=== PATIENT | male | born 1965 | race Caucasian/White ===

== ENCOUNTER → 2022-09-20 19:31 | Outpatient (CLI) | payer MEDICARE, OTHER, SELFPAY | PROVIDERS: PCP Emergency Medicine; Visit Provider Emergency Medicine | DX: L02.414 Cutaneous abscess of left upper limb (principal); B95.7 Other staphylococcus as the cause of diseases classified elsewhere | CPT/HCPCS: 87070; 87077; 87186; 87205 ==

== ENCOUNTER 2023-10-21 08:53 | Observation (INO) | payer MEDICARE, OTHER, SELFPAY ==
[2023-10-21] VITALS (12 sets, daily range): BP systolic 110–140; BP diastolic 74–87; PULSE 64–92; RESP 16–18; TEMP 36.7; O2SAT 94–98; BMI 23.1
--- NOTE | 2023-10-21 08:55 | HMH.EDGENADL ---
Discharge Plan Disposition Patient Disposition: Admitted Clinical Impressions Clinical Impression: Leg fracture, left Discharge ED Provider: Rocael Gongora Adult [facility] General Chief complaint: Extremity Injury, Lower Stated complaint: fall on 10/19/23 Time Seen by Provider: 10/21/23 08:55 History of Present Illness HPI narrative: Patient presents from assisted living facility with reported fall and ankle injury sustained 3 days ago. History is extremely limited secondary to what appears to be history of intellectual disability. He reports no specific injury or event that led to the onset of the problem. The patient is unsure of when the issue first began but has been able to walk on the affected ankle. He reports pain in the ankle, but no pain elsewhere. Please note that above description of symptoms, in this electronic medical record under categorization of recalled from ER triage doctor by RN are reflective of an initial nursing assessment, however, is not reflective of my full history and physical exam that was personally taken and clarified. Consequentially, this preceding description of symptoms, which may include the patient's categorized chief complaint in the EMR, do not reflect my personal clinical impression, and the ultimate description of history of present illness and patient stated complaints should be deferred to this section of the note. Unless stated otherwise or congruent with this section of the note, additional signs, symptoms, or incongruence should be interpreted as inaccurate with my clinical impression. Related Data Home Medications ?Medication ?Instructions ?Recorded ?Confirmed cholecalciferol (vitamin D3) 1,250 1,250 mcg PO DAILY 10/21/23 10/21/23 mcg (50,000 unit) capsule cyanocobalamin (vitamin B-12) 1,000 mcg PO DAILY 10/21/23 10/21/23 1,000 mcg tablet hydroxyzine pamoate 50 mg capsule 50 mg PO Q6 Anxiety 10/21/23 10/21/23 sertraline 50 mg tablet 75 mg PO DAILY 10/21/23 10/21/23 Allergies Allergy/AdvReac Type Severity Reaction Status Date / Time No Known Allergies Allergy Verified 10/21/23 08:58 [facility] Disclaimer: The information contained in this section may have been updated after the patient was seen, as this information can be updated by other users. Social History Smoking Status: Current every day smoker alcohol intake: never current occupational status: other Travel in the last 8 weeks: None ROS Obtained: Yes other As per HPI Physical Exam General General appearance: alert and in no apparent distress Head Head exam: atraumatic and normocephalic Eye Eye exam: Present normal appearance Neck Neck exam: Present normal inspection Chest Chest inspection: Present normal inspection and symmetric chest wall rise Respiratory Respiratory exam: Present normal lung sounds bilaterally; Absent respiratory distress Cardiovascular Cardiovascular exam: Present regular rate and normal rhythm Abdominal Exam Abdominal exam: Present soft Neurological Exam Neurological exam: Present alert Psychiatric Psychiatric exam: Present normal affect and normal mood Skin Skin exam: Present warm and dry Other Other exam information: Left ankle with ecchymosis, swelling, distally neurovascularly intact, no focal tenderness to palpation. No knee tenderness. No appreciable injury elsewhere. Medical Decision Making Medical Records Medical records reviewed: Yes I reviewed the patient's medical records. Ruben Inquiry Pt receiving controlled substance: No Vital Signs: 10/21/23 08:53 10/21/23 08:54 10/21/23 09:00 Temperature 98.0 F Temperature Source Oral Pulse Rate 92 H 78 Pulse Rate [Radial] 86 Respiratory Rate 16 Blood Pressure 125/80 118/77 Blood Pressure [Right Arm] 125/80 Blood Pressure Mean Blood Pressure Mean [Right Arm] 95 Blood Pressure Source Blood Pressure Source [Right Arm] Automatic Cuff Blood Pressure Position Blood Pressure Position [Right Arm] Sitting 02 Sat by Pulse Oximetry 96 94 L 98 Oxygen Delivery Method Room Air Room Air Room Air 10/21/23 09:30 10/21/23 10:00 10/21/23 10:30 Temperature Temperature Source Pulse Rate 77 64 64 Pulse Rate [Radial] Respiratory Rate Blood Pressure 120/87 111/74 120/74 Blood Pressure [Right Arm] Blood Pressure Mean 83 Blood Pressure Mean [Right Arm] Blood Pressure Source Blood Pressure Source [Right Arm] Blood Pressure Position Blood Pressure Position [Right Arm] 02 Sat by Pulse Oximetry 95 96 94 L Oxygen Delivery Method Room Air Room Air Room Air 10/21/23 11:00 10/21/23 11:30 10/21/23 12:00 Temperature Temperature Source Pulse Rate 77 70 69 Pulse Rate [Radial] Respiratory Rate 16 Blood Pressure 119/80 118/75 110/74 Blood Pressure [Right Arm] Blood Pressure Mean Blood Pressure Mean [Right Arm] Blood Pressure Source Blood Pressure Source [Right Arm] Blood Pressure Position Blood Pressure Position [Right Arm] 02 Sat by Pulse Oximetry 95 95 96 Oxygen Delivery Method Room Air Room Air Room Air 10/21/23 12:30 10/21/23 14:01 Temperature 98.0 F Temperature Source Oral Pulse Rate 71 71 Pulse Rate [Radial] Respiratory Rate 16 Blood Pressure 120/77 120/77 Blood Pressure [Right Arm] Blood Pressure Mean Blood Pressure Mean [Right Arm] Blood Pressure Source Automatic Cuff Blood Pressure Source [Right Arm] Blood Pressure Position Sitting Blood Pressure Position [Right Arm] 02 Sat by Pulse Oximetry 96 Oxygen Delivery Method Room Air Room Air Lab Data 10/21/23 13:35 Orders (Tests/Meds): ED MEDICATIONS Generic Name Dose Route Start Last Admin Trade Name Freq PRN Reason Stop Dose Admin Acetaminophen 650 mg 10/21/23 13:15 Acetaminophen 325mg Tab PO 11/20/23 13:14 Q4HP PRN Fever or Mild Pain (1-3) Hydrocodone Bitart/Acetaminophen 1 tab 10/21/23 13:15 Hydrocodone/Apap 5/325 Mg Tablet PO 11/20/23 13:14 Q4HP PRN Mild to Moderate Pain (1-6) Ondansetron HCl 4 mg 10/21/23 13:15 Ondansetron 4mg/2ml Vial IV 11/20/23 13:14 Q8HP PRN Nausea Pantoprazole Sodium 40 mg 10/21/23 13:30 10/21/23 14:45 Pantoprazole 40mg Tablet PO 11/20/23 13:29 40 mg DAILY LYN Administration ORDERS Category Date Time Status Care Management Consult [Consult to Case Management] [ Cons 10/21/23 10:49 Active CONS] Routine Fibula/tibia XR left 2 views [XR tibia fibula LT 2V] Exams 10/21/23 09:16 Completed Stat XR ankle LT 2V Stat Exams 10/21/23 09:16 Completed XR foot LT 2V Stat Exams 10/21/23 09:16 Completed BMP [Basic Metabolic Panel] [facility] 10/22/23 06:00 Ordered BMP [Basic Metabolic Panel] [facility] 10/23/23 06:00 Ordered BMP [Basic Metabolic Panel] [facility] 10/24/23 06:00 Ordered CBC w/Auto Diff [Complete Blood Count Auto Diff] [facility] 10/22/23 06:00 Ordered CBC w/Auto Diff [Complete Blood Count Auto Diff] [facility] 10/23/23 06:00 Ordered CBC w/Auto Diff [Complete Blood Count Auto Diff] [facility] 10/24/23 06:00 Ordered Comprehensive Metabolic Panel Stat Lab 10/21/23 13:35 Completed Magnesium [facility] 10/22/23 06:00 Ordered Medical Decision Narrative: Patient with history and exam per above presenting for evaluation of left ankle pain. Diagnoses considered include fracture, sprain, no clinical evidence of vascular injury or nerve injury at this time. No clinical evidence of injury elsewhere. ED workup and treatment included: X-ray tibia fibula foot and ankle Imaging was independently visualized and interpreted by me, significant for bimalleolar fracture. Please refer to radiology report for full details. I had an interactive discussion with orthopedic surgeon on-call regarding management and disposition for this patient. After this discussion he was placed in a short leg splint. His condition is complicated by intellectual disability impairing his ability to use crutches. He is unable for me to follow complex enough commands to learn how to use crutches, and lives on the second floor of a facility where he, with the exception of medication distribution and meals, is expected to complete ADLs. For this reason, he will benefit from admission for further management. He was accepted for admission by hospitalist. Critical Care Critical Care Time Critical Care Time: No
--- NOTE | 2023-10-21 09:16 | XR_ITS ---
PROCEDURE INFORMATION: Exam: XR Left Ankle Exam date and time: 10/21/2023 9:18 AM Age: 58 years old Clinical indication: Injury or trauma; Fall; Blunt trauma; Ankle; Left TECHNIQUE: Imaging protocol: Radiologic exam of the left ankle. Views: 1 or 2 views. COMPARISON: CR XR FOOT LT 2V 10/21/2023 9:18 AM FINDINGS: Bones/joints: Displaced spiral oblique fracture of the distal fibula.. Soft tissues: Soft tissue swelling of the ankle IMPRESSION: Displaced spiral oblique fracture of the distal fibula..
--- NOTE | 2023-10-21 09:16 | XR_ITS ---
PROCEDURE INFORMATION: Exam: XR Left Foot Exam date and time: 10/21/2023 9:18 AM Age: 58 years old Clinical indication: Injury or trauma; Fall; Blunt trauma; Foot; Left TECHNIQUE: Imaging protocol: Radiologic exam of the left foot. Views: 1 or 2 views. COMPARISON: CR XR FOOT LT 2V 10/21/2023 9:18 AM FINDINGS: Bones/joints: Displaced distal fibular fracture.. Subtle avulsion fracture off the medial malleolus.. No definite fracture of the tarsal bones or metatarsals or toes. Degenerative changes in the IP joint Soft tissues: Soft tissue swelling of the ankle IMPRESSION: 1. Displaced distal fibular fracture.. 2. Subtle avulsion fracture off the medial malleolus.. 3. No definite fracture of the tarsal bones or metatarsals or toes.
--- NOTE | 2023-10-21 09:16 | XR_ITS ---
PROCEDURE INFORMATION: Exam: XR Left Tibia and Fibula Exam date and time: 10/21/2023 9:18 AM Age: 58 years old Clinical indication: Injury or trauma; Fall; Blunt trauma; Lower leg; Left TECHNIQUE: Imaging protocol: Radiologic exam of the left tibia and fibula. Views: 2 views. COMPARISON: CR XR TIBIA FIBULA LT 2V 10/21/2023 9:18 AM FINDINGS: Bones/joints: Minimally displaced spiral oblique fracture of the distal fibula.. Soft tissues: Soft tissue swelling of the ankle IMPRESSION: Minimally displaced spiral oblique fracture of the distal fibula..
--- NOTE | 2023-10-21 09:25 | PC.NURSE ---
XR AT BEDSIDE
--- NOTE | 2023-10-21 10:47 | PC.NURSE ---
DR BARRON SPEAKING WITH DR AREVALO
--- NOTE | 2023-10-21 13:02 | PC.NURSE ---
DR BARRON SPEAKING WITH DR WOOTEN FOR ADMISSION
--- NOTE | 2023-10-21 13:09 | PC.NURSE ---
DIE ASSEM[facility]ER NOTIFIED OF ADMISSION
[2023-10-21 13:50] LABS: Albumin Level 4.4 g/dl (3.5-5.0); Chloride 109 mmol/L (98-107); Potassium 4.2 mmoL/L (3.5-5.1); Sodium 143 mmol/L (136-145)
[2023-10-21 13:53] LABS: Alanine Aminotransferase 20 U/L (12-78); Albumin/Globulin Ratio 1.4 (1.1-1.8); Alkaline Phosphatase 84 U/L (38-126); Anion Gap 9.2 mEq/L (5-15); Aspartate Amino Transferase 37 U/L (17-59); Bilirubin,Total 1.3 mg/dl (0.2-1.3); Blood Urea Nitrogen 13 mg/dl (9-20); Calcium 8.9 mg/dl (8.4-10.2); Carbon Dioxide 29 mmol/L (22.0-30.0); Creatinine Clearance Estimated 134 mL/min (50-200); Estimated Glomerular Filt Rate 116 ml/min (>60); GFR (African American) 141 ML/MIN (>60); Globulin 3.2 g/dL (1.3-3.2); Glucose 107 mg/dl (74-100); Total Protein,Serum 7.6 g/dl (6.3-8.2)
--- NOTE | 2023-10-21 14:35 | PC.NURSE ---
Spoke with Otoniel Burt and admissions about pt's emergency contacts. Pt has a State Guardian, Cristiana Witt. Current number is [phone]. Emergency after hours number is [phone]. Confirmed from Otoniel Burt that pt does have state guardian but does have family. Brothers names are Marty Dale, Phani Dale. No number. Nieces, Adeola and Dyana. No number.
[2023-10-21] MEDS: PANTOPRAZOLE 40MG TABLET 40 MG PO (14:45)
--- NOTE | 2023-10-21 17:06 | EXP.HP ---
History of Present Illness *Admission Date: 10/21/23 *History of present illness: Patient is a 48-year-old male who lives at assisted living facility presents to the hospital after a fall. According to the report patient was found to have difficulty walking since fall, patient is very poor historian due to history of intellectual disability. Patient was noted to have fracture of distal fibula. Patient has difficulty ambulation and was admitted for possible placement and physical therapy. [facility] Disclaimer: The information contained in this section may have been updated after the patient was seen, as this information can be updated by other users. Social History (Updated 10/21/23 @ 14:57 by Rocael Gongora MD) Smoking Status: Current every day smoker alcohol intake: never current occupational status: other Travel in the last 8 weeks: None Review of Systems Review of Systems Review of systems:: pertinent systems reviewed and negative unless documented below Meds Home Medications and Allergies Home Medications ?Medication ?Instructions ?Recorded ?Confirmed ?Type cholecalciferol (vitamin D3) 1,250 1,250 mcg PO DAILY 10/21/23 10/21/23 History mcg (50,000 unit) capsule cyanocobalamin (vitamin B-12) 1,000 mcg PO DAILY 10/21/23 10/21/23 History 1,000 mcg tablet hydroxyzine pamoate 50 mg capsule 50 mg PO Q6 Anxiety 10/21/23 10/21/23 History sertraline 50 mg tablet 75 mg PO DAILY 10/21/23 10/21/23 History New Prescriptions to Start Prescriptions: Allergies Allergy/AdvReac Type Severity Reaction Status Date / Time No Known Allergies Allergy Verified 10/21/23 08:58 Exam Data for Last 24 hours Vital signs and Labs for Last 24 Hours: Temp Pulse Resp BP Pulse Ox O2 Del Method 98.1 F 81 18 140/75 96 Room Air 10/21/23 16:00 10/21/23 16:00 10/21/23 16:00 10/21/23 16:00 10/21/23 16:00 10/21/23 16:00 Laboratory Results - last 24 hr 10/21/23 13:35: Sodium 143, Potassium 4.2, Chloride 109 H, Carbon Dioxide 29, Anion Gap 9.2, BUN 13, Creatinine 0.70, Estimated Creat Clear 134, Estimated GFR 116, Est GFR ( Amer) 141, Glucose 107 H, Calcium 8.9, Total Bilirubin 1.3, AST 37, ALT 20, Alkaline Phosphatase 84, Total Protein 7.6, Albumin 4.4, Globulin 3.2, Albumin/Globulin Ratio 1.4 I & O for Last 24 hours: Intake & Output 10/18/23 10/19/23 10/20/23 10/21/23 23:59 23:59 23:59 23:59 Output Total 0 / 0 Balance 0 / 0 Weight 81.647 kg Constitutional Constitutional: no acute distress *Routine HEENT Exam Head: Present normocephalic Eye: Present EOMI and PERRL ENT: Present mucous membranes moist *Routine Neck Exam Neck: Present supple; Absent lymphadenopathy *Routine Respiratory Exam Respiratory: Present CTA bilaterally *Routine Cardiovascular Exam Cardiovascular: Present RRR *Routine Abdominal Exam Abdominal: Present soft and normoactive bowel sounds; Absent tenderness *Routine Rectal Exam Rectal:: deferred *Routine Genitalia Exam Genitalia:: deferred *Routine Extremities Exam Extremities: Absent cyanosis, clubbing or edema Comments: left leg covered in plaster *Routine Skin Exam Skin: Present warm; Absent rash *Routine Neurological Exam Neurological: Present alert and oriented X3 Assessment and Plan *Assessment and plan (1) Leg fracture, left: Status: Acute Category: Medical Code(s): S82.92XA - Unspecified fracture of left lower leg, initial encounter for closed fracture Plan Patient is a 48-year-old male who lives at assisted living facility presents to the hospital after a fall. According to the report patient was found to have difficulty walking since fall, patient is very poor historian due to history of intellectual disability. Patient was noted to have fracture of distal fibula. Patient has difficulty ambulation and was admitted for possible placement and physical therapy. Assessment and plan Left leg injury Left distal fibular fracture Fall precautions Pain control Bedrest until complete evaluation by physical therapy, Occupational Therapy Left foot x-ray reviewed Consult health social work professor for possible placement, currently patient lives at [facility] DVT prophylaxis-Lovenox
--- NOTE | 2023-10-21 18:35 | PC.NURSE ---
Pt is sitting up in bed watching cartoons. No complaints stated. Pt is requesting candy. Snacks given to pt. (L) ankle is swollen. DSG in place from ER. C/D/I. Call light within reach.
--- NOTE | 2023-10-22 03:52 | PC.NURSE ---
58 yo male pt admitted with left ankle fracture s/p fall. Pt has remained in bed all shift without complaints. He has denied need for pain meds but frequently requests snacks, which have been provided. Each nurse visit, pt has raised his head up. When asked if he has been sleeping he responds Yeah . Pt assisted by [employer] to WC to BR. He is oriented to self.
[2023-10-22 04:00] VITALS: BP 124/76; PULSE 73; RESP 16; TEMP 36.6; O2SAT 96; BMI 25.7
--- NOTE | 2023-10-22 05:14 | PC.NURSE ---
Addendum entered by Leidy Chinchilla RN 10/22/23 05:19: Wrong pt Original Note: Wound care provided to areas on buttocks. Cleansed with NS, pack with moistened gauze and covered with Mepilex border
[2023-10-22 06:29] LABS: Basophils % 0.3 % (0.1-2.0); Eosinophils % 0.6 % (0.1-12.0); Hematocrit 44.7 % (42.0-52.0); Lymphocytes # 0.9 K/mm3 (0.7-4.5); Lymphocytes % 12.2 % (10-50); Mean Corpuscular HGB Conc 31.3 g/dL (31.8-35.4); Mean Corpuscular Hemoglobin 29.7 pg (27.0-31.2); Mean Corpuscular Volume 94.8 fl (80-94); Mean Platelet Volume 9.1 fl (7.4-10.4); Monocytes # 0.5 K/mm3 (0.1-1.0); Monocytes % 7.4 % (1.7-9.3); Neutrophils # 5.7 K/mm3 (1.8-7.8); Neutrophils % 79.4 % (37.0-80.0); Platelet Count 180 K/mm3 (142-424); Red Blood Count 4.71 M/mm3 (4.60-6.20); Red Cell Distribution Width 14.5 % (11.5-17.5); White Blood Count 7.2 K/mm3 (4.8-10.8)
[2023-10-22 06:38] LABS: Anion Gap 5.6 mEq/L (5-15); Blood Urea Nitrogen 14 mg/dl (9-20); Calcium 8.3 mg/dl (8.4-10.2); Carbon Dioxide 28 mmol/L (22.0-30.0); Chloride 112 mmol/L (98-107); Creatinine Clearance Estimated 134 mL/min (50-200); Estimated Glomerular Filt Rate 116 ml/min (>60); GFR (African American) 141 ML/MIN (>60); Glucose 96 mg/dl (74-100); Potassium 3.6 mmoL/L (3.5-5.1); Sodium 142 mmol/L (136-145)
[2023-10-22 08:00] VITALS: BP 130/79; PULSE 88; RESP 18; TEMP 36.8; O2SAT 97
--- NOTE | 2023-10-22 08:09 | HMH.PTEV ---
Physical Therapy Evaluation Rehab PT IP Evaluation Start: 10/21/23 17:09 Freq: ONCE Status: Active Protocol: Document 10/22/23 08:00 FRAA (Rec: 10/22/23 08:08 FARA [id number]) Subjective/History History History Per H&P: Patient is a 48-year- old male who lives at assisted living facility presents to the hospital after a fall. According to the report patient was found to have difficulty walking since fall, patient is very poor historian due to history of intellectual disability. Patient was noted to have fracture of distal fibula. Patient has difficulty ambulation and was admitted for possible placement and physical therapy. Subjective Subjective PLOF per pt report: Lives at [facility] and was IND prior to admission without AD. I stood up and fell. Pt is a poor historian. Confirm history with CM. New diagnosis of cancer in past 12 No months? Rehab PT IP Eval Objective Appearance Patient Behavior Appropriate,Cooperative Difficulty following instructions moderate Speech Pattern Clear Ambulation Patient Able to Ambulate Yes Ambulation Observation Ambulation Distance (feet) 15 Ambulation Assistive Device Rolling Walker Ambulation Ability Minimal x 1 (25% assist) Balance Ability to Arise Able, uses arms to help Sitting Balance Steady, safe Standing Balance Unsteady Transfers Bed Transfer Ability Supervision/Stand by Sit to Stand Bed Transfer Ability Minimal x 1 (25% assist) Rehab PT IP prob,goals,plan Problems Date of Evaluation: 10/22/23 PT IP Problems Bed Mobility,Transfers,Gait, Balance,Safety Rehab Potential Rehab Potential Good Equipment Needs Assistive Devices Rolling / Wheeled Walker Plan PT Intervention Plan Bed Mobility,Transfers,Gait, Balance,Safety,Therapeutic Exercise Other Intervention Plan 1-2 times PT Plan Frequency Daily Duration LOS Discharge Goals Bed Transfer Ability Independent Sit to Stand Chair Transfer Ability Contact Guard/Hand Hold Ambulation Assistive Device Rolling Walker Ambulation Distance (feet) 20 Discharge Plan PT Discharge Plan Initial physical therapy evaluation performed. Patient presents below baseline at this time in functional mobility, transfers, gait, and strength. Pt required multiple cues for sequencing and NWB on LLE during set up for STS. Once ambulating pt able to maintain NWB with one VC. Pt required Min A when using RW. PT recommending RW over axillary crutches d/t balance deficits. Pt not safe to return home at this time d/ t current level of functional mobility. PT recommending short-term rehabilitation stay upon d/c from [facility]. Pt would benefit from skilled PT while at [facility] to prevent further functional decline and maximize safety with mobility. Eval Complexity Eval Charge Codes 71545 - Moderate Complexity PHYSICIAN CERTIFICATION: I certify the specified therapy services for Scott [place] are required, authorized, and reviewed every 30 days.
--- NOTE | 2023-10-22 08:37 | SW/DCPLANNER ---
Addendum entered by [facility] 10/22/23 15:52: I did provide Communication Clerk (Chayito) w/ phone number for [employer] once rolling walker is ordered and delivered. Addendum entered by [facility] 10/22/23 15:47: [facility] stated that services will begin this week. Addendum entered by [facility] 10/22/23 14:05: Patient did she improvement w/ PT this afternoon and is able to return to [facility]. [facility]. I will [facility] up [facility]. Addendum entered by [facility] 10/22/23 13:48: [facility], [facility], [facility], [facility] and [facility] are unable to accept this patient. Eddie Alamo is currently reviewing information. If patient shows improvement he may be able to return to [facility] w/ home health services. I will continue to follow up w/ this patient. Addendum entered by [facility] 10/22/23 09:05: Patient information has also been faxed to [facility] and [facility]. Original Note: This patient currently resides at [facility]. PT evaluated patient this AM and recommended SNF level of care at time of discharge. I spoke w/ patient's State Guardian (Cristiana) and she prefer [facility] or [facility] at this time. I will fax patient information to both facilities. I will follow up once information is reviewed. Discharge date is unknown at this time.
--- NOTE | 2023-10-22 08:46 | P.CONPHA_ITS ---
Pharmacy Intervention Comments: CALLED [facility] TO VERIFY HOME MEDICATION LIST
--- NOTE | 2023-10-22 08:46 | HMH.PHAINT1 ---
Pharmacy Intervention Comments: CALLED [facility] TO VERIFY HOME MEDICATION LIST
[2023-10-22] MEDS: SERTRALINE 50MG TABLET 75 MG PO (09:14)
[2023-10-22] MEDS: PANTOPRAZOLE 40MG TABLET 40 MG PO (09:14)
--- NOTE | 2023-10-22 10:05 | HMH.OTEV ---
OT Inpatient Evaluation Rehab OT IP Evaluation Start: 10/21/23 17:09 Freq: ONCE Status: Active Protocol: Document 10/22/23 09:47 [facility] (Rec: 10/22/23 10:04 FRANCISSANDY [id number]) Rehab OT IP Assessment Subjective History Pt oriented x 2 on arrival. Pt admitted for Bimalleolar fx on 10/21/23 Per H&P: Patient is a 48-year- old male who lives at assisted living facility presents to the hospital after a fall. According to the report patient was found to have difficulty walking since fall, patient is very poor historian due to history of intellectual disability. Patient was noted to have fracture of distal fibula. Patient has difficulty ambulation and was admitted for possible placement and physical therapy. Subjective Prior to being in the hospital , pt claims he was living at [facility]. Normally he was independent with all ADLs and did not require any type of AE during functional transfers. Pt is poor historian and unable to provide much information about history. Objective Patient Orientation Person,Birthday Right Upper Extremity Gross ROM WFL Left Upper Extremity Gross ROM WFL Bed Mobility bed mobility-scooting,bed mobility - supine/sit Assist Level Contact Guard/Hand Hold Transfer Training Sit/Stand Transfer Assist Level Minimal x 1 (25% assist) Rehab OT IP prob,goals,plan Problems Date of Evaluation: 10/22/23 OT IP Problems Bed Mobility,Transfers,Balance ,Self care,Safety Rehab Potential Rehab Potential Good Equipment Needs Assistive Devices Rolling / Wheeled Walker Plan OT intervention Plan Bed Mobility,Transfers,Balance ,Self care,Safety,Therapeutic Exercise OT Plan Frequency Daily Duration LOS Discharge Goals Bed Mobility Ability Standby Assistance Sit to Stand Chair Transfer Ability Contact Guard/Hand Hold Chair Transfer Ability Contact Guard/Hand Hold Chair Transfer Technique Sit to/from Ambulatory Chair Transfer Assistive Devices Rolling Walker Lower Body Dressing Ability Minimal Assistance Upper Body Dressing Ability Contact Guard Bathing Ability Minimal Assistance Performing Toilet Hygiene Ability Contact Guard Overall Commode/Toilet Transfer Ability Contact Guard Commode/Toilet Transfer Technique Sit to/from Ambulatory Commode/Toilet Transfer Assistive Grab Bars Devices Oral Care Assist Contact Guard Discharge Plan OT Discharge Plan Pt will continue to be seen for OT services while at [facility]. Pt would benefit most from short term rehab at SNF following discharge from hospital. Continued skilled therapy is important in order for patient to improve strength, safety, endurance, ADL independence, and functional transfers to reach PLOF. Eval Complexity Eval Charge Codes 59020 - Moderate Complexity PHYSICIAN CERTIFICATION: I certify the specified therapy services for Scott Dale are required, authorized, and reviewed every 30 days.
--- NOTE | 2023-10-22 12:49 | EXP.ORTH.CON ---
History of Present Illness *Admission Date: 10/21/23 *History of present illness: Patient is a 48-year-old male who lives at assisted living facility presents to the hospital after a fall. According to the report patient was found to have difficulty walking since fall, patient is very poor historian due to history of intellectual disability. Patient was noted to have fracture of distal fibula. Patient has difficulty ambulation and was admitted for possible placement and physical therapy. Orthopedics consulted regarding treatment options for left ankle PFSH PFSH Disclaimer: The information contained in this section may have been updated after the patient was seen, as this information can be updated by other users. Social History (Updated 10/21/23 @ 14:57 by Rocael Gongora MD) Smoking Status: Current every day smoker alcohol intake: never current occupational status: other Travel in the last 8 weeks: None Meds Home Medications and Allergies Home Medications ?Medication ?Instructions ?Recorded ?Confirmed ?Type cholecalciferol (vitamin D3) 1,250 1,250 mcg PO WEEKLY 10/21/23 10/22/23 History mcg (50,000 unit) capsule cyanocobalamin (vitamin B-12) 1,000 mcg PO DAILY 10/21/23 10/21/23 History 1,000 mcg tablet sertraline 50 mg tablet 75 mg PO DAILY 10/21/23 10/21/23 History New Prescriptions to Start Prescriptions: Allergies Allergy/AdvReac Type Severity Reaction Status Date / Time No Known Allergies Allergy Verified 10/21/23 08:58 Ortho Exam (Inpt) Vital signs and Labs for Last 24 Hours: Temp Pulse Resp BP Pulse Ox O2 Del Method 98.3 F 88 18 130/79 97 Room Air 10/22/23 08:00 10/22/23 08:00 10/22/23 08:00 10/22/23 08:00 10/22/23 08:00 10/22/23 10:37 Laboratory Results - last 24 hr 10/21/23 13:35: Sodium 143, Potassium 4.2, Chloride 109 H, Carbon Dioxide 29, Anion Gap 9.2, BUN 13, Creatinine 0.70, Estimated Creat Clear 134, Estimated GFR 116, Est GFR ( Amer) 141, Glucose 107 H, Calcium 8.9, Total Bilirubin 1.3, AST 37, ALT 20, Alkaline Phosphatase 84, Total Protein 7.6, Albumin 4.4, Globulin 3.2, Albumin/Globulin Ratio 1.4 10/22/23 05:42: WBC 7.2, RBC 4.71, Hgb 14.0 L, Hct 44.7, MCV 94.8 H, MCH 29.7, MCHC 31.3 L, RDW 14.5, Plt Count 180, MPV 9.1, Neut % (Auto) 79.4, Lymph % (Auto) 12.2, [place] % (Auto) 7.4, Eos % (Auto) 0.6, Baso % (Auto) 0.3, Neut # (Auto) 5.7, Lymph # (Auto) 0.9, [place] # (Auto) 0.5, Eos # (Auto) 0.0, Baso # (Auto) 0.0, Sodium 142, Potassium 3.6, Chloride 112 H, Carbon Dioxide 28, Anion Gap 5.6, BUN 14, Creatinine 0.70, Estimated Creat Clear 134, Estimated GFR 116, Est GFR ( Amer) 141, Glucose 96, Calcium 8.3 L, Magnesium 2.0 I & O for Labs for Last 24 Hours: Intake & Output 10/19/23 10/20/23 10/21/23 10/22/23 23:59 23:59 23:59 23:59 Intake Total 240 / 240 Output Total 0 / 0 0 / 0 Balance 0 / 0 240 / 240 Weight 180 lb 200 lb Head: Present normocephalic and atraumatic Comment:: Left ankle: Splint in place. Wiggles toes. Sensation intact. Moderate amount of swelling. X-rays of left ankle reveal a lateral malleolus fracture at the level of the joint without significant displacement laterally of the talus. Results Labs 10/22/23 05:42 10/22/23 05:42 Labs: Abnormal lab results 10/21/23 10/22/23 Range/Units 13:35 05:42 Hgb 14.0 L (14.1-18.0) g/dL MCV 94.8 H (80-94) fl MCHC 31.3 L (31.8-35.4) g/dL Chloride 109 H 112 H (98-107) mmol/L Glucose 107 H (74-100) mg/dl Calcium 8.3 L (8.4-10.2) mg/dl H & H 10/22/23 Range/Units 05:42 Hgb 14.0 L (14.1-18.0) g/dL Hct 44.7 (42.0-52.0) % All other labs normal. Assessment and Plan *Assessment and plan (1) Closed bimalleolar fracture of left ankle: Status: Acute Qualifiers: Encounter type: initial encounter Qualified Code(s): S82.842A - Displaced bimalleolar fracture of left lower leg, initial encounter for closed fracture Category: Medical Code(s): S82.842A - Displaced bimalleolar fracture of left lower leg, initial encounter for closed fracture Plan I saw the patient today. Unfortunately he was unaware upon questioning today that he even broke his left ankle. He is in a splint. Reports that he has no pain. He does have complicating living situations to be on the second floor and should Which complicates his ability to be ambulatory. He was unable to fully be amatory with crutches in the emergency room. He would benefit from a different living situation with the acute fracture. It is also known to be difficult for him to adhere to postoperative instructions in regards to protecting weightbearing wound care. At this point the ankle x-rays are stable. He has some mild lateral displacement of the fibula but no widening of the ankle joint. We will attempt to treat this fracture conservatively. He will return to clinic in 1 week for repeat x-rays of the ankle. If it maintains good alignment we can continue with conservative treatment. If it were to displace further he may require operative intervention. It would be quite difficult for patient to adhere to postoperative protocols. If the ankle has not shifted in 1 week we will continue with conservative treatment.
--- NOTE | 2023-10-22 14:21 | EXP.DC.SUM ---
General Admission date:: 10/21/23 Discharge date: 10/22/23 HPI HPI HPI: Patient is a 48-year-old male who lives at assisted living facility presents to the hospital after a fall. According to the report patient was found to have difficulty walking since fall, patient is very poor historian due to history of intellectual disability. Patient was noted to have fracture of distal fibula. Patient has difficulty ambulation and was admitted for possible placement and physical therapy. Orthopedics consulted regarding treatment options for left ankle Hospital Course Hospital Course Hospital Course: Patient is a 48-year-old male who lives at assisted living facility presents to the hospital after a fall. According to the report patient was found to have difficulty walking since fall, patient is very poor historian due to history of intellectual disability. Patient was noted to have fracture of distal fibula. Patient has difficulty ambulation and was admitted for possible placement and physical therapy. Left leg injury Left distal fibular fracture Patient was evaluated by orthopedic surgery, they recommended conservative management. Patient is needing rehab and physical therapy at discharge, patient will be discharged in stable condition and follow up with orthopedics as OP On the date of discharge, the patient reported feeling stable. The patient was found not to be in any acute distress, and no new abnormalities on physical examination. Further, the patient expressed appropriate understanding of, and agreement with, the discharge recommendations, medications, and plan. Time spent 37 mins Exam Data for Last 24 hours Vital signs and Labs for Last 24 Hours: Temp Pulse Resp BP Pulse Ox O2 Del Method 98.3 F 88 18 130/79 97 Room Air 10/22/23 08:00 10/22/23 08:00 10/22/23 08:00 10/22/23 08:00 10/22/23 08:00 10/22/23 13:00 Laboratory Results - last 24 hr 10/22/23 05:42: WBC 7.2, RBC 4.71, Hgb 14.0 L, Hct 44.7, MCV 94.8 H, MCH 29.7, MCHC 31.3 L, RDW 14.5, Plt Count 180, MPV 9.1, Neut % (Auto) 79.4, Lymph % (Auto) 12.2, [place] % (Auto) 7.4, Eos % (Auto) 0.6, Baso % (Auto) 0.3, Neut # (Auto) 5.7, Lymph # (Auto) 0.9, [place] # (Auto) 0.5, Eos # (Auto) 0.0, Baso # (Auto) 0.0, Sodium 142, Potassium 3.6, Chloride 112 H, Carbon Dioxide 28, Anion Gap 5.6, BUN 14, Creatinine 0.70, Estimated Creat Clear 134, Estimated GFR 116, Est GFR ( Amer) 141, Glucose 96, Calcium 8.3 L, Magnesium 2.0 I & O for Last 24 hours: Intake & Output 10/19/23 10/20/23 10/21/23 10/22/23 23:59 23:59 23:59 23:59 Intake Total 720 / 720 Output Total 0 / 0 0 / 0 Balance 0 / 0 720 / 720 Weight 81.647 kg 90.718 kg Constitutional Constitutional: no acute distress *Routine HEENT Exam Head: Present normocephalic Eye: Present EOMI and PERRL ENT: Present mucous membranes moist *Routine Neck Exam Neck: Present supple; Absent lymphadenopathy *Routine Respiratory Exam Respiratory: Present CTA bilaterally *Routine Cardiovascular Exam Cardiovascular: Present RRR *Routine Abdominal Exam Abdominal: Present soft and normoactive bowel sounds; Absent tenderness *Routine Extremities Exam Extremities: Absent cyanosis, clubbing or edema *Routine Skin Exam Skin: Present warm; Absent rash *Routine Neurological Exam Neurological: Present alert and oriented X3 Results Data Completed and Pending Labs on day of discharge: Labs from last 24 hours 10/22/23 05:42 WBC 7.2 RBC 4.71 Hgb 14.0 L Hct 44.7 MCV 94.8 H MCH 29.7 MCHC 31.3 L RDW 14.5 Plt Count 180 MPV 9.1 Neut % (Auto) 79.4 Lymph % (Auto) 12.2 [place] % (Auto) 7.4 Eos % (Auto) 0.6 Baso % (Auto) 0.3 Neut # (Auto) 5.7 Lymph # (Auto) 0.9 [place] # (Auto) 0.5 Eos # (Auto) 0.0 Baso # (Auto) 0.0 Sodium 142 Potassium 3.6 Chloride 112 H Carbon Dioxide 28 Anion Gap 5.6 BUN 14 Creatinine 0.70 Estimated Creat Clear 134 Estimated GFR 116 Est GFR ( Amer) 141 Glucose 96 Calcium 8.3 L Magnesium 2.0 DS: Diagnosis Discharge Diagnosis (1) Closed bimalleolar fracture of left ankle: Status: Acute Code(s): S82.842A - Displaced bimalleolar fracture of left lower leg, initial encounter for closed fracture Qualifiers: Encounter type: initial encounter Qualified Code(s): S82.842A - Displaced bimalleolar fracture of left lower leg, initial encounter for closed fracture Meds Home Medications and Allergies Home Medications ?Medication ?Instructions ?Recorded ?Confirmed ?Type cholecalciferol (vitamin D3) 1,250 1,250 mcg PO WEEKLY 10/21/23 10/22/23 History mcg (50,000 unit) capsule cyanocobalamin (vitamin B-12) 1,000 mcg PO DAILY 10/21/23 10/21/23 History 1,000 mcg tablet sertraline 50 mg tablet 75 mg PO DAILY 10/21/23 10/21/23 History hydrocodone 5 mg-acetaminophen 325 1 tab PO Q8H PRN Mild To Moderate 10/22/23 Rx mg tablet Pain (1-6) 3 days #9 tabs New Prescriptions to Start Prescriptions: hydrocodone-acetaminophen Maranda Esquivel Allergies Allergy/AdvReac Type Severity Reaction Status Date / Time No Known Allergies Allergy Verified 10/21/23 08:58 Discharge Plan Disposition Patient Disposition: Home Health Service Condition: Fair Discharge Order Discharge Orders: Discharge Order (Routine); Ordered 10/22/23 Ordered By: Maranda Esquivel Follow up Plan Follow up with: Caleb Velázquez DO [Staff Physician] - 2 weeks Prescriptions/Medication Reconciliation: New hydrocodone-acetaminophen 5-325 mg Tablet 1 tab PO Q8H PRN (Reason: Mild To Moderate Pain (1-6)) 3 Days Qty: 9 0RF Continued sertraline 50 mg tablet 75 mg PO DAILY cyanocobalamin (vitamin B-12) 1,000 mcg tablet 1,000 mcg PO DAILY Patient Comments: GIVE 1 TABLET BY MOUTH ONCE DAILY cholecalciferol (vitamin D3) 1,250 mcg (50,000 unit) capsule 1,250 mcg PO WEEKLY Patient Comments: GIVE 1 CAPSULE BY MOUTH EVERY WEEK ON SUNDAY Rx Instructions: ON SUNDAY Problem Reconciliation Problems Reviewed?: Yes Patient Discharge Instructions ACTIVITY: Ambulate as tolerated DIET: continue same diet Print Language: Ivorian Providers Primary Care Provider: Provider,Referral Admit Provider: Maranda Esquivel Attending Provider: Maranda Esquivel
--- NOTE | 2023-10-22 14:53 | XR_ITS ---
FINAL REPORT TECHNIQUE: Single view chest CLINICAL HISTORY: sob FINDINGS: A single view of the chest was obtained. Heart is normal in size. There is mild pulmonary vascular congestion. There are bibasilar opacities which may represent atelectasis or pneumonia. There is no pneumothorax. Osseous structures are unremarkable. Gas-filled bowel loops are noted beneath the right hemidiaphragm. IMPRESSION: Bibasilar opacities which may represent atelectasis or pneumonia. Reviewed, Interpreted and Dictated by Juan J Fraser III, MD Transcribed by [place] Banda Authenticated and [facility]
[2023-10-22 16:00] VITALS: BP 128/73; PULSE 94; RESP 16; TEMP 37.2; O2SAT 96
--- NOTE | 2023-10-22 17:59 | PC.NURSE ---
vault clerk contacted [facility] and they stated they had no drivers to come and transport this patient to [facility], called [facility] to see if they could transport him back to their facility, they stated they had no worker with a drivers license, will cancel d/c order
--- NOTE | 2023-10-22 18:12 | PC.NURSE ---
Pt remains alert to self only. VSS. No c/o pain. Lungs clear.
[2023-10-22 21:00] VITALS: BP 123/73; PULSE 82; RESP 16; TEMP 36.8; O2SAT 96
[2023-10-23] VITALS: BP 100/58; PULSE 69; RESP 16; TEMP 36.7; O2SAT 96
[2023-10-23 04:00] VITALS: BP 104/57; PULSE 79; RESP 16; TEMP 36.9; O2SAT 93; BMI 25.7
--- NOTE | 2023-10-23 05:18 | PC.NURSE ---
Alert to self. No complaints throughout night. Expected to go back to [facility] today. Bed alarm on. Call light in reach.
--- NOTE | 2023-10-23 06:25 | ECG_ITS ---
APPROVED REPORT Exam: Resting ECG HR:74 bpm ECG Measurements Heart Rate 74 AXES HI 163 P 71 QRSd 110 QRS 34 QT 370 T 88 QTc 398 Conclusion SINUS RHYTHM WITH SINUS ARRHYTHMIA Isolated Q-wave in III, otherwise normal ECG ABNORMAL ECG UNCONFIRMED REPORT Electronically signed by : Tyrel Rasmussen MD 10/24/2023 08:07:05
[2023-10-23 07:14] LABS: Anion Gap 9.8 mEq/L (5-15); Blood Urea Nitrogen 15 mg/dl (9-20); Calcium 8.2 mg/dl (8.4-10.2); Carbon Dioxide 25 mmol/L (22.0-30.0); Chloride 109 mmol/L (98-107); Creatinine Clearance Estimated 149 mL/min (50-200); Estimated Glomerular Filt Rate 116 ml/min (>60); GFR (African American) 141 ML/MIN (>60); Glucose 92 mg/dl (74-100); Potassium 3.8 mmoL/L (3.5-5.1); Sodium 140 mmol/L (136-145)
[2023-10-23 07:32] LABS: Basophils % 0.3 % (0.1-2.0); Eosinophils # 0.1 K/mm3 (0.0-0.4); Eosinophils % 0.8 % (0.1-12.0); Hematocrit 43.1 % (42.0-52.0); Hemoglobin 13.7 g/dL (14.1-18.0); Lymphocytes % 10.3 % (10-50); Mean Corpuscular HGB Conc 31.7 g/dL (31.8-35.4); Mean Corpuscular Hemoglobin 30.1 pg (27.0-31.2); Mean Corpuscular Volume 94.8 fl (80-94); Mean Platelet Volume 9.3 fl (7.4-10.4); Monocytes # 0.7 K/mm3 (0.1-1.0); Monocytes % 7.8 % (1.7-9.3); Neutrophils # 7.4 K/mm3 (1.8-7.8); Neutrophils % 80.7 % (37.0-80.0); Platelet Count 179 K/mm3 (142-424); Red Blood Count 4.55 M/mm3 (4.60-6.20); Red Cell Distribution Width 14.6 % (11.5-17.5); White Blood Count 9.2 K/mm3 (4.8-10.8)
[2023-10-23 08:00] VITALS: BP 130/77; PULSE 102; RESP 18; TEMP 36.6; O2SAT 97
--- NOTE | 2023-10-23 08:01 | P.DS_ITS ---
General Admission date:: 10/21/23 Discharge date: 10/23/23 HPI HPI HPI: Patient is a 48-year-old male who lives at assisted living facility presents to the hospital after a fall. According to the report patient was found to have difficulty walking since fall, patient is very poor historian due to history of intellectual disability. Patient was noted to have fracture of distal fibula. Patient has difficulty ambulation and was admitted for possible placement and physical therapy. Orthopedics consulted regarding treatment options for left ankle. Hospital Course Hospital Course Hospital Course: Patient is a 48-year-old male who lives at assisted living facility presents to the hospital after a fall. According to the report patient was found to have difficulty walking since fall, patient is very poor historian due to history of intellectual disability. Patient was noted to have fracture of distal fibula. Patient has difficulty ambulation and was admitted for possible placement and physical therapy. Found to have left by malleolar fracture. Weight-bear as tolerated. Orthopedics evaluated. Therapy evaluated, stable to discharge back to his personal correction. Outpatient follow-up. Home health ordered. Problems addressed as follows: Left leg injury Left distal fibular fracture - Patient was evaluated by orthopedic surgery, they recommended conservative management. Recommend following up with orthopedics as an outpatient. Nonoperative management at this time. In postop boot, weight-bear as tolerated. Ordered home health for PT and OT at his personal correction. On the date of discharge, the patient reported feeling well. The patient was found not to be in any acute distress, and no new abnormalities on physical examination. Further, the patient expressed appropriate understanding of, and agreement with, the discharge recommendations, medications, and plan. Time spent 35 mins Exam Data for Last 24 hours Vital signs and Labs for Last 24 Hours: Temp Pulse Resp BP Pulse Ox O2 Del Method 98.4 F 79 16 104/57 L 93 L Room Air 10/23/23 04:00 10/23/23 04:00 10/23/23 04:00 10/23/23 04:00 10/23/23 04:00 10/23/23 06:55 Laboratory Results - last 24 hr 10/23/23 06:06: Sodium 140, Potassium 3.8, Chloride 109 H, Carbon Dioxide 25, Anion Gap 9.8, BUN 15, Creatinine 0.70, Estimated Creat Clear 149, Estimated GFR 116, Est GFR ( Amer) 141, Glucose 92, Calcium 8.2 L I & O for Last 24 hours: Intake & Output 10/20/23 10/21/23 10/22/23 10/23/23 23:59 23:59 23:59 23:59 Intake Total 1320 / 1620 300 / 300 Output Total 0 / 0 0 / 0 0 / 0 Balance 0 / 0 1320 / 1620 300 / 300 Weight 81.647 kg 90.718 kg 90.718 kg Constitutional Constitutional: no acute distress, average body habitus and chronically ill appearing *Routine HEENT Exam Head: Present normocephalic Eye: Present EOMI and PERRL ENT: Present mucous membranes moist *Routine Neck Exam Neck: Present supple; Absent lymphadenopathy *Routine Respiratory Exam Respiratory: Present CTA bilaterally; Absent wheezes or crackles *Routine Cardiovascular Exam Cardiovascular: Present RRR *Routine Abdominal Exam Abdominal: Present soft and normoactive bowel sounds; Absent tenderness *Routine Rectal Exam Patient deferred: visual exam *Routine Exam Patient deferred: penile exam *Routine Extremities Exam Extremities: Absent cyanosis, clubbing or edema Comments: left leg in boot, Ankle tender to palpation *Routine Skin Exam Skin: Present warm; Absent rash *Routine Neurological Exam Neurological: Present alert, oriented X3 and moving all extremities; Absent alt ered mental status Results Data Completed and Pending Labs on day of discharge: Labs from last 24 hours 10/23/23 06:06 Sodium 140 Potassium 3.8 Chloride 109 H Carbon Dioxide 25 Anion Gap 9.8 BUN 15 Creatinine 0.70 Estimated Creat Clear 149 Estimated GFR 116 Est GFR ( Amer) 141 Glucose 92 Calcium 8.2 L DS: Diagnosis Discharge Diagnosis (1) Closed bimalleolar fracture of left ankle: Status: Acute Code(s): S82.842A - Displaced bimalleolar fracture of left lower leg, initial encounter for closed fracture Qualifiers: Encounter type: initial encounter Qualified Code(s): S82.842A - Displaced bimalleolar fracture of left lower leg, initial encounter for closed fracture Meds Home Medications and Allergies Home Medications ?Medication ?Instructions ?Recorded ?Confirmed ?Type cholecalciferol (vitamin D3) 1,250 1,250 mcg PO WEEKLY 10/21/23 10/22/23 History mcg (50,000 unit) capsule cyanocobalamin (vitamin B-12) 1,000 mcg PO DAILY 10/21/23 10/21/23 History 1,000 mcg tablet sertraline 50 mg tablet 75 mg PO DAILY 10/21/23 10/21/23 History hydrocodone 5 mg-acetaminophen 325 1 tab PO Q8H PRN pain #9 tabs 10/22/23 Rx mg tablet New Prescriptions to Start Prescriptions: hydrocodone-acetaminophen Maranda Esquivel Allergies Allergy/AdvReac Type Severity Reaction Status Date / Time No Known Allergies Allergy Verified 10/21/23 08:58 Discharge Plan Disposition Patient Disposition: Home Health Service Condition: Fair Discharge Order Discharge Orders: Discharge Order (Routine); Ordered 10/23/23 Ordered By: Matthieu Cage Follow up Plan Follow up with: Caleb Velázquez DO [Staff Physician] - 11/08/23 1:15 pm Prescriptions/Medication Reconciliation: New hydrocodone-acetaminophen 5-325 mg tablet 1 tab PO Q8H PRN (Reason: pain) Qty: 9 0RF Continued sertraline 50 mg tablet 75 mg PO DAILY cyanocobalamin (vitamin B-12) 1,000 mcg tablet 1,000 mcg PO DAILY Patient Comments: GIVE 1 TABLET BY MOUTH ONCE DAILY cholecalciferol (vitamin D3) 1,250 mcg (50,000 unit) capsule 1,250 mcg PO WEEKLY Patient Comments: GIVE 1 CAPSULE BY MOUTH EVERY WEEK ON SUNDAY Rx Instructions: ON SUNDAY Other Ambulatory Orders: Home Medical Equipment (Routine) Location: None Selected Ordered By: Maranda Esquivel Problem Reconciliation Problems Reviewed?: Yes Patient Discharge Instructions ACTIVITY: Ambulate as tolerated DIET: continue same diet Patient Instructions: Foot Fracture, DI for Acute Pain -- Adult Print Language: Faroese Providers Primary Care Provider: Provider,Referral Admit Provider: Maranda Esquivel Attending Provider: Maranda Esquivel
--- NOTE | 2023-10-23 08:34 | SW/DCPLANNER ---
I have arranged [facility] for this patient.
[2023-10-23] MEDS: PANTOPRAZOLE 40MG TABLET 40 MG PO (09:21)
[2023-10-23] MEDS: SERTRALINE 50MG TABLET 75 MG PO (09:21)
== END 2023-10-23 09:22 | disposition home health service (06) ==
LOC: ER 10:37 → 2ND 13:21
PROVIDERS: Admitting Provider Internal Medicine; Emergency Provider Emergency Medicine; Visit Provider Internal Medicine
DX: S82.842A Displaced bimalleolar fracture of left lower leg, initial encounter for closed fracture; F17.210 Nicotine dependence, cigarettes, uncomplicated; Z79.899 Other long term (current) drug therapy; F79 Unspecified intellectual disabilities; W01.0XXA Fall on same level from slipping, tripping and stumbling without subsequent striking against object, initial encounter; Y92.099 Unspecified place in other non-institutional residence as the place of occurrence of the external cause; Z73.89 Other problems related to life management difficulty
CPT/HCPCS: 36415; 71045; 73590; 73600; 73620; 80048; 80053; 83735; 85025; 93005; 97116; 97162; 97166; 97530; 99285; G0378

== ENCOUNTER 2023-11-08 13:30 | Outpatient (CLI) | payer MEDICARE, OTHER, SELFPAY ==
--- NOTE | 2023-11-08 13:46 | XR_ITS ---
FINAL REPORT CLINICAL HISTORY: left ankle pain COMPARISON: 10/21/2023 FINDINGS: LEFT ANKLE Three views demonstrate interval placement of a cast overlying the distal leg and foot on the left side. Once again noted is an oblique fracture of the distal fibula with mild displacement, which appears stable when compared to the prior exam. There is a small nondisplaced fracture at the tip of the medial malleolus. The ankle mortise appears intact. IMPRESSION: Interval placement of a cast overlying the distal leg and foot on the left side, with a mildly displaced oblique fracture of the distal fibula and small nondisplaced fracture at the tip of the medial malleolus. Reviewed, Interpreted and Dictated by Augusto Waters MD Transcribed by Neelam James Authenticated and [facility]
== END 2023-11-08 23:59 | disposition home or self-care (01) ==
LOC: RAD 13:40
PROVIDERS: Visit Provider Orthopaedic Surgery
DX: M25.572 Pain in left ankle and joints of left foot (principal)
CPT/HCPCS: 73610

== ENCOUNTER 2023-12-06 10:34 | Outpatient (CLI) | payer MEDICARE, OTHER, SELFPAY ==
--- NOTE | 2023-12-06 10:38 | XR_ITS ---
FINAL REPORT CLINICAL HISTORY: Left ankle fx COMPARISON: 11/08/2023 FINDINGS: Left ankle Three views were obtained. There is an oblique fracture of the distal fibular shaft with mild displacement. The appearance is stable from prior exam. The ankle mortise is intact. Bone detail is obscured by fiberglass cast. IMPRESSION: No significant change in the distal fibular fracture. Reviewed, Interpreted and Dictated by Julia Pittman MD Transcribed by Arely Stratton Authenticated and [facility]
== END 2023-12-06 23:59 | disposition home or self-care (01) ==
LOC: RAD 10:36
PROVIDERS: Visit Provider Orthopaedic Surgery
DX: S82.832A Other fracture of upper and lower end of left fibula, initial encounter for closed fracture (principal)
CPT/HCPCS: 73610

== ENCOUNTER 2024-01-03 10:39 | Outpatient (CLI) | payer MEDICARE, OTHER, SELFPAY ==
--- NOTE | 2024-01-03 10:45 | XR_ITS ---
PROCEDURE INFORMATION: Exam: XR Left Ankle Exam date and time: 01/03/2024 10:50 AM Age: 58 years old Clinical indication: Pain; Other: FX follow up TECHNIQUE: Imaging protocol: Radiologic exam of the left ankle. Views: 3 or more views. Total images: 3 COMPARISON: CR XR ANKLE LT MIN 3V 12/06/2023 10:48 AM FINDINGS: Bones/joints: Healing fracture of the distal fibula. Some callus formation is present. Fracture line remains visible. No evidence of acute dislocation. Bones are osteopenic. Calcaneal spurs are present. Soft tissues: Lateral soft tissue swelling. IMPRESSION: 1. Healing fracture of the distal fibula. Some callus formation is present. Fracture line remains visible. 2. No evidence of acute dislocation. 3. Lateral soft tissue swelling. 4. Bones are osteopenic.
== END 2024-01-03 23:59 | disposition home or self-care (01) ==
LOC: RAD 10:43
PROVIDERS: PCP Nurse Practitioner Family; Visit Provider Physician Assistant Surgical
DX: S82.832A Other fracture of upper and lower end of left fibula, initial encounter for closed fracture (principal)
CPT/HCPCS: 73610

== ENCOUNTER 2024-01-29 19:51 | Emergency (ER) | payer MEDICARE, OTHER, SELFPAY ==
[2024-01-29] VITALS (7 sets, daily range): BP systolic 105–132; BP diastolic 73–84; PULSE 74–108; RESP 18–20; TEMP 36.4–36.6; O2SAT 95–98; BMI 28.2
--- NOTE | 2024-01-29 19:52 | HMH.EDGENADL ---
Discharge Plan Disposition Patient Disposition: Home, Self-Care Condition: Good Prescriptions Prescriptions: New cephalexin 500 mg capsule 500 mg PO BID 7 Days Qty: 14 0RF sulfamethoxazole-trimethoprim [Bactrim DS] 800-160 mg tablet 1 tab PO DAILY 7 Days Qty: 7 0RF No Action sertraline 50 mg tablet 75 mg PO DAILY cyanocobalamin (vitamin B-12) 1,000 mcg tablet 1,000 mcg PO DAILY Patient Comments: GIVE 1 TABLET BY MOUTH ONCE DAILY cholecalciferol (vitamin D3) 1,250 mcg (50,000 unit) capsule 1,250 mcg PO WEEKLY Patient Comments: GIVE 1 CAPSULE BY MOUTH EVERY WEEK ON SUNDAY Rx Instructions: ON SUNDAY hydrocodone-acetaminophen 5-325 mg tablet 1 tab PO Q8H PRN (Reason: pain) Qty: 9 0RF Referrals Follow up/Referrals: Austin Lr APRN [Primary Care Provider] - See instructions Activity Restrictions/Add. Instructions Additional Instructions/Restrictions: You are being prescribed Bactrim and Keflex, both antibiotics, to treat the infection of your left leg. Take these for 7 days as prescribed. If you develop any new or worsening symptoms, such as fever, difficulty breathing, or worsening signs of infection, such as abscess, pus draining from the leg, or if you become concerned for your health for any reason, return to the emergency department for evaluation. Otherwise, follow-up with your primary care physician in the next 3 to 4 days for a follow-up appointment. Clinical Impressions Clinical Impression: Cellulitis of left leg Print Language Print Language: Danish Discharge ED Provider: Manny Oconnell General Adult HPI General Chief complaint: PAIN Stated complaint: leg pain Time Seen by Provider: 01/29/24 19:52 History of Present Illness HPI narrative: Scott Dale is a 58M with a history of intellectual disability who was diagnosed with a closed bimalleolar fracture of the left ankle on 10/21/2023. Patient was admitted at that time and ended up getting placed into [facility]. He has been there since that time. Reportedly patient was out walking today when he tripped and fell and bystanders helped him up. Reportedly he has not been able to bear weight on his left leg since then according to the outside facility and they noticed that his left ankle and leg appeared swollen today, and previously it was not swollen. Patient denies any pain. He does state that he has been able to walk, however history is limited secondary to intellectual disability. Per EMS report, he is not on any blood thinning medications. Patient states that he did not hit his head or lose consciousness. He does not have any pain anywhere. Related Data Home Medications ?Medication ?Instructions ?Recorded ?Confirmed cholecalciferol (vitamin D3) 1,250 1,250 mcg PO WEEKLY 10/21/23 01/03/24 mcg (50,000 unit) capsule cyanocobalamin (vitamin B-12) 1,000 mcg PO DAILY 10/21/23 01/03/24 1,000 mcg tablet sertraline 50 mg tablet 75 mg PO DAILY 10/21/23 01/03/24 Previous Rx's ?Medication ?Instructions ?Recorded hydrocodone 5 mg-acetaminophen 325 1 tab PO Q8H PRN pain #9 tabs 10/22/23 mg tablet cephalexin 500 mg capsule 500 mg PO BID 7 days #14 caps 01/29/24 sulfamethoxazole 800 1 tab PO DAILY 7 days #7 tabs 01/29/24 mg-trimethoprim 160 mg tablet (Bactrim DS) Allergies Allergy/AdvReac Type Severity Reaction Status Date / Time No Known Allergies Allergy Verified 01/03/24 11:21 [facility] Disclaimer: The information contained in this section may have been updated after the patient was seen, as this information can be updated by other users. Social History Smoking Status: Never smoker alcohol intake: never current occupational status: other Travel in the last 8 weeks: None Other Medical History Have you received the Flu Vaccine for this season: No Have you received the Pneumonia Vaccine: No ROS Obtained: Yes Systems reviewed as appropriate & no additional complaints except as documented Physical Exam General General appearance: alert and in no apparent distress Comment: Answers most questions appropriately, however limited secondary to intellectual disability Head Head exam: atraumatic Eye Eye exam: Present normal appearance ENT ENT exam: Present normal external ear exam Neck Neck exam: Present full ROM Chest Chest inspection: Present symmetric chest wall rise Respiratory Respiratory exam: Present normal lung sounds bilaterally; Absent respiratory distress Cardiovascular Cardiovascular exam: Present regular rate and normal rhythm Abdominal Exam Abdominal exam: Present soft; Absent tenderness or guarding exam: Present deferred Extremities Exam Extremities exam: Present normal inspection Expanded Lower Extremity Exam Left: Comment: Left lower extremity: 3+ pitting edema extending from the forefoot all the way up to the proximal root. 2+ DP pulses. Neuro vastly intact distally with good range of motion at the ankle and toes as well as knee. Some bruising/ecchymosis at different stages of healing noted to the bilateral malleoli. Patient is nontender throughout the entire left lower extremity. Left lower extremity feels warm to the touch compared to the right. Some mild erythema on the distal aspect of the root. Back Exam Back exam: Present normal inspection Neurological Exam Neurological exam: Present alert and other (No focal neurological deficit) Psychiatric Psychiatric exam: Present normal affect Skin Skin exam: Present warm and dry Medical Decision Making Medical Records Medical records reviewed: Yes I reviewed the patient's medical records. Screening: Per USPSTF and CDC recommendations, given the prevalence of disease in our region, it is our hospital?s policy to screen for HIV and viral Hepatitis for all patients aged 18 and over and those with ongoing risk factors. Ruben Inquiry Pt receiving controlled substance: No Vital Signs: 01/29/24 19:51 01/29/24 19:53 01/29/24 20:00 Temperature 97.6 F Temperature Source Oral Pulse Rate 81 79 Pulse Rate [Right Brachial] 108 H Respiratory Rate 20 Blood Pressure 105/73 L Blood Pressure [Right Arm] 131/77 Blood Pressure Mean [Right Arm] 95 Blood Pressure Source [Right Arm] Automatic Cuff Blood Pressure Position [Right Arm] Supine 02 Sat by Pulse Oximetry 96 96 96 Oxygen Delivery Method Room Air 01/29/24 20:30 01/29/24 21:00 01/29/24 21:15 Temperature Temperature Source Pulse Rate 91 H 96 H 102 H Pulse Rate [Right Brachial] Respiratory Rate Blood Pressure 125/81 132/84 118/74 Blood Pressure [Right Arm] Blood Pressure Mean [Right Arm] Blood Pressure Source [Right Arm] Blood Pressure Position [Right Arm] 02 Sat by Pulse Oximetry 97 96 95 Oxygen Delivery Method Orders (Tests/Meds): ORDERS Category Date Time Status Ankle XR - Left 2 Views [XR ankle LT 2V] Stat Exams 01/29/24 19:53 Completed Fibula/tibia XR left 2 views [XR tibia fibula LT 2V] Exams 01/29/24 19:53 Completed Stat Foot XR left 2 views [XR foot LT 2V] Stat Exams 01/29/24 19:53 Completed POCUS Point of Care (ER Only) Stat Exams 01/29/24 19:53 Completed HIV (1&2) Antibody Rapid Stat Lab 01/29/24 19:55 Ordered Hep C Ab with Reflex to RNA Stat Lab 01/29/24 19:55 Ordered Medical Decision Narrative: Scott Dale is a 58-year-old male with a past medical history of borderline intellectual disability who presents to the emergency department for complaints of fall. Patient had a fall and sustained a left bimalleolar fracture in October of this year and was admitted at that time. He has been staying at [facility] and EMS stated that he he was out walking today when he reportedly fell and was found by bystanders and was unable to get up at that time. However, patient states that he has been walking since the incident but does have swelling to his left leg. Patient denies any head trauma and has no pain anywhere. On arrival, patient blood pressure 105/73, pulse 79 bpm, breathing comfortably on room air, afebrile, oxygen saturation at 96% SpO2. Physical exam, stated above, revealed 3+ pitting edema to the left lower extremity with mild warmth to the distal left lower extremity. Full range of motion at the ankle and toes. Ecchymosis in multiple stages of healing to the bilateral malleoli. His entire leg is nontender throughout. Differential diagnosis includes: Cellulitis, DVT, fracture, dependent edema, among others. Workup included: [id number] ultrasound (DVT), x-rays of the left tib-fib, left ankle and left foot. POCUS DVT LLE: Indication: Limited compression ultrasonography of the left lower was performed to evaluate for non-compressibility of the deep veins in the patient. The ultrasound was performed with the following indications, as noted in the H&P: Left leg swelling Identified structures: Left common femoral vein, femoral vein, popliteal vein were examined. Findings: Lower Extremity: Left CFV: Good compressibility Left FV Good compressibility Left Popliteal vein: Good compressibility Impression: Normal DVT ultrasound Images were saved to permanent archive The study was technically adequate CPT: 60062-09-AL This study was performed by me, and I personally interpreted all images/videos. Based on my clinical judgement, these images were adequate/inadequate and did/did not necessitate further ultrasound imaging. X-rays were interpreted by me personally and demonstrated previous bimalleolar fracture that is unchanged from previous. Critical Care Critical Care Time Critical Care Time: No
--- NOTE | 2024-01-29 19:53 | XR_ITS ---
PROCEDURE INFORMATION: Exam: XR Left Tibia and Fibula Exam date and time: 01/29/2024 8:04 PM Age: 58 years old Clinical indication: Pain; Lower leg; Left; Additional info: Fall, recent bimalleolar fracture TECHNIQUE: Imaging protocol: Radiologic exam of the left tibia and fibula. Views: 2 views. COMPARISON: CR XR ANKLE LT 2V 01/29/2024 8:02 PM FINDINGS: Bones/joints: Mildly displaced oblique fracture of the distal fibular metaphysis with mild periosteal reaction has not significantly changed. No acute fracture. Osteopenia. 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 Soft tissues: Diffuse soft tissue swelling. IMPRESSION: 1. Mildly displaced oblique fracture of the distal fibular metaphysis with mild periosteal reaction has not significantly changed. 2. No acute fracture. 3. Diffuse soft tissue swelling.
--- NOTE | 2024-01-29 19:53 | XR_ITS ---
PROCEDURE INFORMATION: Exam: XR Left Foot Exam date and time: 01/29/2024 8:00 PM Age: 58 years old Clinical indication: Pain; Foot; Left; Additional info: Fall, recent bimalleolar fracture TECHNIQUE: Imaging protocol: Radiologic exam of the left foot. Views: 1 or 2 views. COMPARISON: CR XR FOOT LT 2V 10/21/2023 9:18 AM FINDINGS: Bones/joints: No acute fracture or dislocation. Osteopenia. Healing distal fibular fracture is unchanged. Soft tissues: Normal. IMPRESSION: No acute findings.
--- NOTE | 2024-01-29 19:53 | XR_ITS ---
PROCEDURE INFORMATION: Exam: XR Left Ankle Exam date and time: 01/29/2024 8:02 PM Age: 58 years old Clinical indication: Pain; Ankle; Left; Additional info: Fall, recent bimalleolar fracture TECHNIQUE: Imaging protocol: Radiologic exam of the left ankle. Views: 1 or 2 views. COMPARISON: CR XR ANKLE LT MIN 3V 01/03/2024 10:50 AM FINDINGS: Bones/joints: Mildly displaced oblique fracture of the distal fibular metaphysis with mild periosteal reaction has not significantly changed. No other fracture. Osteopenia. Small plantar surface calcaneal bone spur. Small dorsal osteophyte of the distal talus. Soft tissues: Diffuse soft tissue swelling. IMPRESSION: 1. Mildly displaced oblique fracture of the distal fibular metaphysis with mild periosteal reaction has not significantly changed. 2. Diffuse soft tissue swelling.
--- NOTE | 2024-01-29 20:09 | PC.NURSE ---
Pt to xray via wheelchair
--- NOTE | 2024-01-29 22:38 | PC.NURSE ---
Called alfredo paz to notify patient is ready to be discharged
--- NOTE | 2024-01-29 22:44 | PC.NURSE ---
[facility]
== END 2024-01-29 23:11 | disposition home or self-care (01) ==
PROVIDERS: Emergency Provider Student in an Organized Health Care Education/Training Program; PCP Nurse Practitioner Acute Care
DX: L03.116 Cellulitis of left lower limb (principal); R22.42 Localized swelling, mass and lump, left lower limb; W01.0XXA Fall on same level from slipping, tripping and stumbling without subsequent striking against object, initial encounter; Y93.89 Activity, other specified; Y92.9 Unspecified place or not applicable
CPT/HCPCS: 73590; 73600; 73620; 99283